=== PATIENT | female | born 1950 | race Caucasian/White ===

== ENCOUNTER 2020-04-20 16:21 | Observation (INO) | payer MEDICARE, OTHER ==
[~2020-04-20] VITALS: Ht 162.6 cm; Wt 96.9 kg
[2020-04-20] MEDS ORDERED: ONDANSETRON ODT 4 MG PO ONE (17:00)
[2020-04-20] MEDS ORDERED: HYDROmorphone 1 MG/ML, 1ML INJ IM ONE (17:00)
[2020-04-20] MEDS ORDERED: HYDROmorphone 1 MG/ML, 1ML INJ ONE (17:00)
[2020-04-20] MEDS ORDERED: ONDANSETRON ODT 4 MG ONE (17:00)
--- NOTE | 2020-04-20 17:00 | NUR ---
records requested from Kandis Faustin
[2020-04-20 17:11] LABS: MICROSCOPIC INDICATED
[2020-04-20 18:06] LABS: ALANINE AMINOTRANSFERASE 23 U/L (12-78); ALBUMIN 3.3 g/dL (3.4-5.0); ANION GAP 5 mmol/L (5-15); BILIRUBIN, DIRECT 0.2 mg/dL (0.1-0.2); CALCIUM 8.2 mg/dL (8.5-10.1); CHLORIDE 109 mmol/L (98-107); CREATININE 1.21 mg/dL (0.55-1.02)
[2020-04-20 18:09] LABS: ALKALINE PHOSPHATASE 81 U/L (45-117); BILIRUBIN,INDIRECT 0.3 mg/dL (0.0-2.0); BILIRUBIN,TOTAL 0.5 mg/dL (0.2-1.0); TOTAL PROTEIN 6.7 g/dL (6.4-8.2)
--- NOTE | 2020-04-20 18:28 | NUR ---
US IN WITH PT AT THIS TIME
--- NOTE | 2020-04-20 19:55 | NUR ---
PT TO BE ADMITTED. PT EDUCATED ON PLAN OF CARE
[2020-04-20 21:20] VITALS: BP 133/59
[2020-04-20] MEDS ORDERED: ACETAMINOPHEN 325 MG TABLET PO PRN (21:30)
[2020-04-20] MEDS ORDERED: ONDA4TAB7 PO (22:02)
[2020-04-20] MEDS ORDERED: ONDA-89 PO (22:02)
[2020-04-20] MEDS ORDERED: TAMS-11 PO (22:02)
[2020-04-20] MEDS ORDERED: IBUP-1222 PO (22:03)
[2020-04-20] MEDS ORDERED: HYDR-3237 PO (22:04)
[2020-04-21] MEDS: HYDROmorphone 2 MG/ML, 1ML IVPush PRN ×3 (01:09→09:30)
[2020-04-21 01:13] VITALS: BP 116/68
[2020-04-21 05:06] LABS: BASOPHILS # (AUTO) 0.02 x10^3/uL (0-0.1); BASOPHILS % (AUTO) 0 % (0-1); EOSINOPHILS % (AUTO) 1 % (1-7); LYMPHOCYTES # (AUTO) 1.77 x10^3/uL (1-3.4); LYMPHOCYTES % (AUTO) 23 % (22-44); MD NO; MEAN CORPUSCULAR HEMOGLOBIN 31.6 pg (27.0-34.8); MEAN CORPUSCULAR HGB CONC 33.6 g/dL (32.4-35.8); MEAN PLATELET VOLUME 7.9 fL (7.4-10.4); MONOCYTES # (AUTO) 0.53 x10^3/uL (0.2-0.8); MONOCYTES % (AUTO) 7 % (2-9); NEUTROPHILS # (AUTO) 5.28 x10^3/uL (1.8-6.8); NEUTROPHILS % (AUTO) 69 % (42-75); PLATELET COUNT 203 x10^3/uL (130-400); RED BLOOD COUNT 3.85 x10^6/uL (3.82-5.3); RED CELL DISTRIBUTION WIDTH 12.4 % (9.6-15.2)
[2020-04-21 05:18] LABS: ANION GAP 6 mmol/L (5-15); CALCIUM 8.6 mg/dL (8.5-10.1); CHLORIDE 106 mmol/L (98-107)
[2020-04-21 05:21] LABS: CREATININE 1.23 mg/dL (0.55-1.02)
[2020-04-21 07:06] VITALS: BP 133/79
[2020-04-21] MEDS: ONDANSETRON 2MG/ML, 2ML IVPush PRN ×2 (08:20→17:16)
[2020-04-21] MEDS ORDERED: CHLORHEXIDINE 15 ML UDC ONE (12:38)
[2020-04-21] MEDS ORDERED: MIDAZOLAM 1 MG/ML, 2ML ONE (13:31)
[2020-04-21] MEDS ORDERED: FENTANYL PF 100 MCG/2ML ONE (13:31)
[2020-04-21] MEDS ORDERED: ONDANSETRON 2MG/ML, 2ML IVPush PRN (14:00)
[2020-04-21] MEDS ORDERED: ACETAMINOPHEN 325 MG TABLET PO PRN (14:00)
[2020-04-21] MEDS ORDERED: OXYcodone 5 MG/5 ML ORAL.SOL UDC PO PRN (14:00)
[2020-04-21] MEDS ORDERED: FENTANYL PF 100 MCG/2ML IV PRN (14:00)
[2020-04-21] MEDS ORDERED: MEPERIDINE/PF 25MG/0.5ML IVPush PRN (14:00)
[2020-04-21] MEDS ORDERED: HYDROmorphone 1 MG/ML, 1ML INJ IVPush PRN (14:00)
[2020-04-21] MEDS ORDERED: EPHEDRINE 50 MG/ML, 1ML ONE (14:02)
[2020-04-21] MEDS ORDERED: PROPOFOL 10 MG/ML, 20ML ONE (14:02)
[2020-04-21] MEDS ORDERED: KETOROLAC 30 MG/1 ML ONE (14:02)
[2020-04-21] MEDS ORDERED: ONDANSETRON ODT 4 MG PO SCH (15:00)
[2020-04-21] MEDS ORDERED: IBUPROFEN 600 MG TABLET PO SCH (15:00)
[2020-04-21] MEDS ORDERED: HYDROcodone/APAP 5/325 TABLET PO SCH (15:00)
[2020-04-21 19:47] VITALS: BP 168/88
[2020-04-21] MEDS ORDERED: HYDROcodone/APAP 5/325 TABLET PO PRN (20:30)
[2020-04-21] MEDS ORDERED: ONDANSETRON ODT 4 MG PO PRN (20:30)
[2020-04-21] MEDS ORDERED: IBUPROFEN 600 MG TABLET PO PRN (20:30)
[2020-04-21 21:10] VITALS: BP 134/74
[2020-04-22] MEDS: ONDANSETRON 2MG/ML, 2ML IVPush PRN (00:02)
[2020-04-22 00:54] VITALS: BP 151/83
[2020-04-22] MEDS ORDERED: PROMETHAZINE 25 MG/ML, 1ML IM ONE (02:30)
[2020-04-22 05:40] LABS: ALBUMIN 3.2 g/dL (3.4-5.0); CHLORIDE 108 mmol/L (98-107)
[2020-04-22 05:42] LABS: ANION GAP 7 mmol/L (5-15); CALCIUM 8.6 mg/dL (8.5-10.1); CREATININE 1.38 mg/dL (0.55-1.02)
[2020-04-22 05:43] LABS: BASOPHILS # (AUTO) 0.02 x10^3/uL (0-0.1); BASOPHILS % (AUTO) 0 % (0-1); EOSINOPHILS % (AUTO) 0 % (1-7); LYMPHOCYTES % (AUTO) 8 % (22-44); MD NO; MEAN CORPUSCULAR HEMOGLOBIN 31.5 pg (27.0-34.8); MEAN CORPUSCULAR HGB CONC 33.2 g/dL (32.4-35.8); MEAN PLATELET VOLUME 7.7 fL (7.4-10.4); MONOCYTES # (AUTO) 0.83 x10^3/uL (0.2-0.8); MONOCYTES % (AUTO) 7 % (2-9); NEUTROPHILS # (AUTO) 9.58 x10^3/uL (1.8-6.8); NEUTROPHILS % (AUTO) 85 % (42-75); PLATELET COUNT 183 x10^3/uL (130-400); RED BLOOD COUNT 3.92 x10^6/uL (3.82-5.3); RED CELL DISTRIBUTION WIDTH 12.9 % (9.6-15.2)
[2020-04-22 09:01] VITALS: BP 156/80
[2020-04-22] MEDS ORDERED: CIPR500T87 PO (10:51)
== END 2020-04-22 13:25 | disposition home or self-care (01) ==
LOC: ED 20:18 → INTOOBSV 20:59 → EDIP 20:59 → 3N 21:00 → DCLOUNGE 04-22 13:11
PROVIDERS: ADMIT Family Medicine; ATTEND Family Medicine
DX: N13.2 Hydronephrosis with renal and ureteral calculous obstruction (principal); Z20.828 Contact with and (suspected) exposure to other viral communicable diseases; K76.0 Fatty (change of) liver, not elsewhere classified; R79.89 Other specified abnormal findings of blood chemistry; E66.9 Obesity, unspecified; Z79.899 Other long term (current) drug therapy; Z90.89 Acquired absence of other organs
CPT/HCPCS: 36415; 52352; 74018; 76000; 76700; 80048; 80069; 80076; 81001; 82360; 83735; 85025; 87086; 87635; 88300; 96372; 96374; 96375; 96376; 99284; C1769; G0378; J1170; J1885; J2250; J2405; J2550; J2704; J3010; Q0162